=== PATIENT | male | born 1985 | race Caucasian/White ===

== ENCOUNTER 2018-04-08 18:38 | Emergency (ER) | payer OTHER ==
[~2018-04-08] VITALS: Ht 177.8 cm; Wt 99.5 kg
[2018-04-08 18:48] VITALS: BP 128/93
--- NOTE | 2018-04-08 20:55 | NUR ---
2054---PATIENT LEFT WITHOUT BEING SEEN BY DR. DOYLE. NO FURTHER CARE PROVIDED FOR PATIENT. 2099---2ND CALL, NO ANSWER 2104---3RD CALL, NO ANSWER.
== END 2018-04-08 20:55 | disposition left against medical advice (07) ==
LOC: MED 18:38
DX: K08.89 Other specified disorders of teeth and supporting structures (principal); Z53.21 Procedure and treatment not carried out due to patient leaving prior to being seen by health care provider

== ENCOUNTER 2019-03-06 16:02 | Emergency (ER) | payer OTHER ==
[~2019-03-06] VITALS: Ht 182.9 cm; Wt 95.3 kg
[2019-03-06 16:10] VITALS: BP 146/94
--- NOTE | 2019-03-06 16:37 | NUR ---
PT BIB SELF C/O RT ELBOW PAIN 12/06 X1 WEEK. PT STATES HE HIT HIS ELBOW AGAINST A DOOR CORNER. SWELLING/DEFORMITY PRESENT, LIMITED ROM TO RT ARM, COLOR WNL, CAP REFIL <2 SEC. SEEN AT [place] W/ ABX WITH NO RELIEF. VSS. ER MD TO SEE PT. HX: NONE RX: NONE
--- NOTE | 2019-03-06 17:52 | NUR ---
+ CMS DISTAL TO SPLINT APPLIED BY CORINE GASPAR
[2019-03-06 17:57] VITALS: BP 159/100
--- NOTE | 2019-03-06 17:57 | NUR ---
Patient discharged with v/s stable. Written and verbal after care instructions given and explained. Patient alert, oriented and verbalized understanding of instructions. Ambulatory with steady gait. All questions addressed prior to discharge. ID band removed. Patient advised to follow up with PMD. Rx of IBUPROFEN AND TYLENOL given. Patient educated on indication of medication including possible reaction and side effects. Opportunity to ask questions provided and answered.
== END 2019-03-06 17:57 | disposition home or self-care (01) ==
LOC: MED 16:02
DX: S42.401A Unspecified fracture of lower end of right humerus, initial encounter for closed fracture (principal); J45.909 Unspecified asthma, uncomplicated; W22.8XXA Striking against or struck by other objects, initial encounter; Y93.89 Activity, other specified; Y92.89 Other specified places as the place of occurrence of the external cause; Y99.8 Other external cause status
CPT/HCPCS: 29105; 73080; 99283; Q0092; 29505